=== PATIENT | male | born 1950 | race Caucasian/White ===

== ENCOUNTER → 2022-09-29 | Outpatient (CLI) | payer MEDICARE ==
--- NOTE | 2022-09-29 16:53 | Diagnostic Imaging Report ---
CT Lung Screening INDICATION:[id number] smoking history for baseline low-dose CT screening. TECHNIQUE: Noncontrast, low-dose CT imaging performed according to the lung cancer screening protocol. Auto Exposure Controls were utilize during the CT exam to meet ALARA standards for radiation dose reduction. COMPARISON: Baseline. FINDINGS: There is pectus excavatum deformity to the chest wall as a chronic finding, this deviates the contour of the anterior heart border with the minimal sternal to thoracic spinal distance measuring 7 cm at the level of T8. There is very slight discoid subsegmental atelectasis juxta-fissural in the right lower lobe as well as in the dependent left base. No lung mass or suspicious pulmonary nodule. No acute pneumonia. There are aortic atherosclerotic vascular calcifications. There is no pleural or pericardial effusion. There is no pneumothorax. There is no adenopathy. No findings to suggest lung cancer. IMPRESSION: Visible upper abdomen is unremarkable. No findings of lung cancer. Continued annual low-dose CT screening follow-up recommended. LUNG-RADS CATEGORY: 1 MODIFIER: None. OTHER SIGNIFICANT FINDINGS: Chronic pectus excavatum chest wall deformity. Dictated by: Dictated on workstation # [id number]
== END ==
LOC: RAD 12:15
PROVIDERS: ATTEND Pediatrics
DX: Z12.2 Encounter for screening for malignant neoplasm of respiratory organs (principal); J44.9 Chronic obstructive pulmonary disease, unspecified; Z87.891 Personal history of nicotine dependence
CPT/HCPCS: 71271